=== PATIENT | female | born 1990 | race Caucasian/White ===

== ENCOUNTER 2025-03-29 22:34 | Emergency (ER) | payer SELFPAY ==
[2025-03-30 00:03] LABS: BASOPHILS ABSOLUTE AUTO 0.07 K/uL (0.00-0.20); BASOPHILS PERCENT AUTO 0.6 % (0.0-1.0); EOSINOPHILS ABSOLUTE AUTO 0.12 K/uL (0.00-0.45); EOSINOPHILS PERCENT AUTO 1.0 % (0.0-6.0); IMMATURE GRAN ABSOLUTE AUTO 0.07 K/uL (0.00-0.05); IMMATURE GRAN PERCENT AUTO 0.6 % (0.0-0.4); LYMPHOCYTES ABSOLUTE AUTO 1.66 K/uL (1.00-4.80); LYMPHOCYTES PERCENT AUTO 13.4 % (24.0-44.0); MEAN PLATELET VOLUME 10.4 fL (9.4-12.3); MONOCYTES ABSOLUTE AUTO 0.70 K/uL (0.00-0.80); MONOCYTES PERCENT AUTO 5.7 % (0.0-8.0); NEUTROPHILS ABSOLUTE AUTO 9.73 K/uL (1.80-7.70); NEUTROPHILS PERCENT AUTO 78.7 % (41.0-71.0); NRBC ABSOLUTE 0.00 K/uL (0.00-0.02); NRBC PERCENT 0.0 /100WBC (0.0-0.2); PLATELET COUNT,PLT 348 K/uL (150-400); RED BLOOD CELL COUNT 4.88 M/uL (4.10-5.30); WHITE BLOOD CELL COUNT,WBC 12.35 K/uL (3.9-11.3)
[2025-03-30 01:16] LABS: A/G RATIO 0.7 (0.9-1.6); ALANINE AMINOTRANSFERASE,ALT 19.0 IU/L (14-63); ASPARTATE AMNIOTRANSFERASE,AST 16.0 IU/L (15-37); BILIRUBIN TOTAL 0.5 mg/dL (0.2-1.0); BLOOD UREA NITROGEN,BUN 6.0 mg/dL (7.0-18.0); CARBON DIOXIDE,CO2 23.1 mmol/L (21.0-32.0); CHLORIDE,CL 100.0 mmol/L (98-107); CREATININE 0.7 mg/dL (0.6-1.0); EST CRCL DRUG DOSING (CG) 82.11 mL/min; GLUCOSE RANDOM 86.0 mg/dL (74-106); POTASSIUM,K 3.8 mmol/L (3.5-5.1); PROTEIN TOTAL,TP 7.7 g/dL (6.4-8.2); SODIUM,NA 136.0 mmol/L (136-145)
[2025-03-30 01:37] LABS: ESTIMATED GFR 117.0 mL/min (>60)
[2025-03-30 04:12] LABS: APPEARANCE,URINE CLOUDY; GLUCOSE,URINE NEGATIVE (NEGATIVE); OCCULT BLOOD,URINE LARGE (NEGATIVE)
[2025-03-30 05:07] LABS: EPITHELIAL CELLS,URINE FEW (NONE-FEW)
== END 2025-03-30 06:21 | disposition home or self-care (01) ==
LOC: MW.ED 22:34
DX: O42.912 Preterm premature rupture of membranes, unspecified as to length of time between rupture and onset of labor, second trimester (principal); Z3A.16 16 weeks gestation of pregnancy
CPT/HCPCS: 36415; 76815; 76817; 80053; 81001; 84702; 85025; 99284; A9270; 99283

== ENCOUNTER 2025-04-01 17:11 | Inpatient (IN) | payer SELFPAY ==
[2025-04-01] MEDS ORDERED: Sodium Chloride 0.9% 2.5 ML Syringe FLUSH PRN (17:45)
[2025-04-01] MEDS ORDERED: Sodium Chloride 0.9% 10 ML Syringe FLUSH PRN (17:45)
[2025-04-01] MEDS: Ampicillin/Sulbactam Na 3 GM in Sodium Chloride 0.9% 100 ML IV ONE (18:15)
[2025-04-01 18:16] LABS: BASOPHILS ABSOLUTE AUTO 0.04 K/uL (0.00-0.20); BASOPHILS PERCENT AUTO 0.2 % (0.0-1.0); EOSINOPHILS ABSOLUTE AUTO 0.04 K/uL (0.00-0.45); EOSINOPHILS PERCENT AUTO 0.2 % (0.0-6.0); IMMATURE GRAN ABSOLUTE AUTO 0.11 K/uL (0.00-0.05); IMMATURE GRAN PERCENT AUTO 0.6 % (0.0-0.4); LYMPHOCYTES ABSOLUTE AUTO 0.71 K/uL (1.00-4.80); LYMPHOCYTES PERCENT AUTO 3.6 % (24.0-44.0); MEAN PLATELET VOLUME 10.7 fL (9.4-12.3); MONOCYTES ABSOLUTE AUTO 0.37 K/uL (0.00-0.80); MONOCYTES PERCENT AUTO 1.9 % (0.0-8.0); NEUTROPHILS ABSOLUTE AUTO 18.26 K/uL (1.80-7.70); NEUTROPHILS PERCENT AUTO 93.5 % (41.0-71.0); NRBC ABSOLUTE 0.00 K/uL (0.00-0.02); NRBC PERCENT 0.0 /100WBC (0.0-0.2); PLATELET COUNT,PLT 252 K/uL (150-400); RED BLOOD CELL COUNT 4.45 M/uL (4.10-5.30); WHITE BLOOD CELL COUNT,WBC 19.53 K/uL (3.9-11.3)
[2025-04-01 18:42] LABS: A/G RATIO 0.6 (0.9-1.6); ALANINE AMINOTRANSFERASE,ALT 14.0 IU/L (14-63); ASPARTATE AMNIOTRANSFERASE,AST 17.0 IU/L (15-37); BILIRUBIN TOTAL 0.7 mg/dL (0.2-1.0); BLOOD UREA NITROGEN,BUN 6.0 mg/dL (7.0-18.0); CARBON DIOXIDE,CO2 22.5 mmol/L (21.0-32.0); CHLORIDE,CL 97.0 mmol/L (98-107); CREATININE 0.7 mg/dL (0.6-1.0); EST CRCL DRUG DOSING (CG) 82.11 mL/min; GLUCOSE RANDOM 103.0 mg/dL (74-106); POTASSIUM,K 3.2 mmol/L (3.5-5.1); PROTEIN TOTAL,TP 7.5 g/dL (6.4-8.2); SODIUM,NA 132.0 mmol/L (136-145)
[2025-04-01 18:43] LABS: ESTIMATED GFR 117.0 mL/min (>60)
[2025-04-01 18:47] LABS: LACTIC ACID 1.2 mmol/L (0.4-2.0)
[2025-04-01] MEDS: Ketorolac 30 MG/ML SDV IVPUSH ONE ×2 (19:05→21:52)
[2025-04-01] MEDS ORDERED: Butorphanol 1 MG/ML SDV IVPUSH PRN (21:06)
[2025-04-01] MEDS ORDERED: Nalbuphine 10 MG/1 ML Vial IVPUSH PRN (21:06)
[2025-04-01] MEDS ORDERED: fentaNYL 100 MCG/2 ML SDV IVPUSH PRN (21:06)
[2025-04-01] MEDS ORDERED: Ondansetron 4 MG/2 ML SDV IVPUSH PRN (21:34)
[2025-04-01 21:56] LABS: D-DIMER QUANTITATIVE 2.32 mg/L FEU (0.00-0.50); INR 0.99 (0.86-1.11)
[2025-04-01] MEDS: NS + KCl 20mEq/L 1,000 ML IV SCH (22:11)
[2025-04-01] MEDS: metroNIDAZOLE/Normal Saline 500 MG in Premix Bag 1 BAG IV SCH (22:19)
[2025-04-01] MEDS: Misoprostol 50 MCG (1/2 of 100 MCG) Tab VAG ONE (22:52)
[2025-04-02] MEDS: Lactated Ringers 1,000 ML IV ONE (00:04)
[2025-04-02 01:05] LABS: BASOPHILS ABSOLUTE AUTO 0.02 K/uL (0.00-0.20); BASOPHILS PERCENT AUTO 0.2 % (0.0-1.0); EOSINOPHILS ABSOLUTE AUTO 0.00 K/uL (0.00-0.45); EOSINOPHILS PERCENT AUTO 0.0 % (0.0-6.0); IMMATURE GRAN ABSOLUTE AUTO 0.05 K/uL (0.00-0.05); IMMATURE GRAN PERCENT AUTO 0.5 % (0.0-0.4); LYMPHOCYTES ABSOLUTE AUTO 0.49 K/uL (1.00-4.80); LYMPHOCYTES PERCENT AUTO 4.5 % (24.0-44.0); MEAN PLATELET VOLUME 10.5 fL (9.4-12.3); MONOCYTES ABSOLUTE AUTO 0.17 K/uL (0.00-0.80); MONOCYTES PERCENT AUTO 1.5 % (0.0-8.0); NEUTROPHILS ABSOLUTE AUTO 10.27 K/uL (1.80-7.70); NEUTROPHILS PERCENT AUTO 93.3 % (41.0-71.0); NRBC ABSOLUTE 0.00 K/uL (0.00-0.02); NRBC PERCENT 0.0 /100WBC (0.0-0.2); PLATELET COUNT,PLT 177 K/uL (150-400); RED BLOOD CELL COUNT 3.96 M/uL (4.10-5.30); WHITE BLOOD CELL COUNT,WBC 11.00 K/uL (3.9-11.3)
[2025-04-02 01:25] LABS: BLOOD UREA NITROGEN,BUN 5.0 mg/dL (7.0-18.0); CARBON DIOXIDE,CO2 18.5 mmol/L (21.0-32.0); CHLORIDE,CL 101.0 mmol/L (98-107); CREATININE 0.9 mg/dL (0.6-1.0); EST CRCL DRUG DOSING (CG) 63.86 mL/min; GLUCOSE RANDOM 88.0 mg/dL (74-106); POTASSIUM,K 2.6 mmol/L (3.5-5.1); SODIUM,NA 136.0 mmol/L (136-145)
[2025-04-02 01:26] LABS: ESTIMATED GFR 87.0 mL/min (>60)
[2025-04-02] MEDS: Magnesium Sulfat/D5W 1GM/100ML 1 GM in Premix Bag 1 BAG IV ONE (02:19)
[2025-04-02] MEDS ORDERED: Carboprost Tromethamine 250 MCG/1 mL Vial IM PRN (03:44)
[2025-04-02] MEDS ORDERED: Aluminum Hydroxide/Magnesium Hydroxide/Simethicone Susp 30 ML Cup PO PRN (03:47)
[2025-04-02] MEDS ORDERED: Lanolin 100% Cream 7 GM Tube TOP PRN (03:47)
[2025-04-02] MEDS ORDERED: Benzocaine/Menthol 20%-0.5% Spray 78 GM Cannister TOP PRN (03:47)
[2025-04-02] MEDS ORDERED: Witch Hazel Medicated Pads 40/Jar TOP PRN (03:47)
[2025-04-02 04:08] LABS: A/G RATIO 0.6 (0.9-1.6); ALANINE AMINOTRANSFERASE,ALT 13.0 IU/L (14-63); ASPARTATE AMNIOTRANSFERASE,AST 16.0 IU/L (15-37); BILIRUBIN TOTAL 0.9 mg/dL (0.2-1.0); BLOOD UREA NITROGEN,BUN 6.0 mg/dL (7.0-18.0); CARBON DIOXIDE,CO2 17.7 mmol/L (21.0-32.0); CHLORIDE,CL 101.0 mmol/L (98-107); CREATININE 0.9 mg/dL (0.6-1.0); EST CRCL DRUG DOSING (CG) 63.86 mL/min; GLUCOSE RANDOM 102.0 mg/dL (74-106); POTASSIUM,K 3.2 mmol/L (3.5-5.1); PROTEIN TOTAL,TP 5.4 g/dL (6.4-8.2); SODIUM,NA 133.0 mmol/L (136-145)
[2025-04-02 04:10] LABS: ESTIMATED GFR 87.0 mL/min (>60)
[2025-04-02 04:15] LABS: BASOPHILS ABSOLUTE AUTO 0.03 K/uL (0.00-0.20); BASOPHILS PERCENT AUTO 0.2 % (0.0-1.0); EOSINOPHILS ABSOLUTE AUTO 0.01 K/uL (0.00-0.45); EOSINOPHILS PERCENT AUTO 0.1 % (0.0-6.0); IMMATURE GRAN ABSOLUTE AUTO 0.15 K/uL (0.00-0.05); IMMATURE GRAN PERCENT AUTO 0.8 % (0.0-0.4); LYMPHOCYTES ABSOLUTE AUTO 0.38 K/uL (1.00-4.80); LYMPHOCYTES PERCENT AUTO 1.9 % (24.0-44.0); MEAN PLATELET VOLUME 10.3 fL (9.4-12.3); MONOCYTES ABSOLUTE AUTO 0.76 K/uL (0.00-0.80); MONOCYTES PERCENT AUTO 3.8 % (0.0-8.0); NEUTROPHILS ABSOLUTE AUTO 18.45 K/uL (1.80-7.70); NEUTROPHILS PERCENT AUTO 93.2 % (41.0-71.0); NRBC ABSOLUTE 0.00 K/uL (0.00-0.02); NRBC PERCENT 0.0 /100WBC (0.0-0.2); PLATELET COUNT,PLT 150 K/uL (150-400); RED BLOOD CELL COUNT 3.68 M/uL (4.10-5.30); WHITE BLOOD CELL COUNT,WBC 19.78 K/uL (3.9-11.3)
[2025-04-02 04:26] LABS: INR 1.2 (0.86-1.11); PTT,PARTIAL THROMBOPLSTIN TIME 36.1 SEC (23.9-30.7)
[2025-04-02] MEDS ORDERED: propofoL 500 MG/50 ML 50 ML ONE (05:08)
[2025-04-02] MEDS ORDERED: Oxytocin 10 Units/1 ML SDV ONE (05:19)
[2025-04-02] MEDS ORDERED: Ondansetron 4 MG/2 ML SDV ONE (05:58)
[2025-04-02 06:46] LABS: MEAN PLATELET VOLUME 10.6 fL (9.4-12.3); NRBC ABSOLUTE 0.00 K/uL (0.00-0.02); NRBC PERCENT 0.0 /100WBC (0.0-0.2); PLATELET COUNT,PLT 146 K/uL (150-400); RED BLOOD CELL COUNT 4.46 M/uL (4.10-5.30); WHITE BLOOD CELL COUNT,WBC 27.21 K/uL (3.9-11.3)
[2025-04-02 06:57] LABS: A/G RATIO 0.6 (0.9-1.6); ALANINE AMINOTRANSFERASE,ALT 12.0 IU/L (14-63); ASPARTATE AMNIOTRANSFERASE,AST 20.0 IU/L (15-37); BILIRUBIN TOTAL 1.0 mg/dL (0.2-1.0); BLOOD UREA NITROGEN,BUN 6.0 mg/dL (7.0-18.0); CARBON DIOXIDE,CO2 15.8 mmol/L (21.0-32.0); CHLORIDE,CL 103.0 mmol/L (98-107); CREATININE 0.8 mg/dL (0.6-1.0); EST CRCL DRUG DOSING (CG) 71.84 mL/min; ESTIMATED GFR 100.0 mL/min (>60); GLUCOSE RANDOM 93.0 mg/dL (74-106); POTASSIUM,K 3.4 mmol/L (3.5-5.1); PROTEIN TOTAL,TP 5.8 g/dL (6.4-8.2); SODIUM,NA 134.0 mmol/L (136-145)
[2025-04-02 07:03] LABS: BAND ABSOLUTE MAN 4.90; BAND PERCENT MAN 18 %; LYMPHOCYTES ABSOLUTE MAN 0.54 K/uL (1.00-4.80); LYMPHOCYTES PERCENT MAN 2 % (24-44); MONOCYTES ABSOLUTE MAN 1.63 K/uL (0.00-0.80); MONOCYTES PERCENT MAN 6 % (0-8); SEG NEUTROPHILS ABSOLUTE MAN 20.14 K/uL (1.80-7.70); SEG NEUTROPHILS PERCENT MAN 74 % (41-71)
[2025-04-02] MEDS ORDERED: Naloxone 0.4 MG/ML SDV IVPUSH PRN (08:19)
[2025-04-02] MEDS: Oxytocin/0.9 % Sodium Chloride 30 UNIT/500 ML BAG ONE (08:33)
[2025-04-02 10:15] LABS: MEAN PLATELET VOLUME 10.6 fL (9.4-12.3); NRBC ABSOLUTE 0.00 K/uL (0.00-0.02); NRBC PERCENT 0.0 /100WBC (0.0-0.2); PLATELET COUNT,PLT 147 K/uL (150-400); RED BLOOD CELL COUNT 4.15 M/uL (4.10-5.30); WHITE BLOOD CELL COUNT,WBC 25.82 K/uL (3.9-11.3)
[2025-04-02 10:39] LABS: A/G RATIO 0.5 (0.9-1.6); ALANINE AMINOTRANSFERASE,ALT 14.0 IU/L (14-63); ASPARTATE AMNIOTRANSFERASE,AST 21.0 IU/L (15-37); BILIRUBIN TOTAL 1.0 mg/dL (0.2-1.0); BLOOD UREA NITROGEN,BUN 6.0 mg/dL (7.0-18.0); CARBON DIOXIDE,CO2 16.6 mmol/L (21.0-32.0); CHLORIDE,CL 105.0 mmol/L (98-107); CREATININE 0.9 mg/dL (0.6-1.0); EST CRCL DRUG DOSING (CG) 63.86 mL/min; GLUCOSE RANDOM 96.0 mg/dL (74-106); POTASSIUM,K 3.6 mmol/L (3.5-5.1); PROTEIN TOTAL,TP 5.7 g/dL (6.4-8.2); SODIUM,NA 135.0 mmol/L (136-145)
[2025-04-02 10:41] LABS: ESTIMATED GFR 87.0 mL/min (>60)
[2025-04-02 11:24] LABS: BAND ABSOLUTE MAN 0.00; LYMPHOCYTES ABSOLUTE MAN 0.52 K/uL (1.00-4.80); LYMPHOCYTES PERCENT MAN 2 % (24-44); MONOCYTES ABSOLUTE MAN 1.03 K/uL (0.00-0.80); MONOCYTES PERCENT MAN 4 % (0-8); SEG NEUTROPHILS ABSOLUTE MAN 24.27 K/uL (1.80-7.70); SEG NEUTROPHILS PERCENT MAN 94 % (41-71)
[2025-04-02 18:22] LABS: MEAN PLATELET VOLUME 10.7 fL (9.4-12.3); NRBC PERCENT 0.0 /100WBC (0.0-0.2); PLATELET COUNT,PLT 150 K/uL (150-400); RED BLOOD CELL COUNT 3.80 M/uL (4.10-5.30); WHITE BLOOD CELL COUNT,WBC 20.40 K/uL (3.9-11.3)
[2025-04-02 18:41] LABS: A/G RATIO 0.6 (0.9-1.6); ALANINE AMINOTRANSFERASE,ALT 8.0 IU/L (14-63); ASPARTATE AMNIOTRANSFERASE,AST 12.0 IU/L (15-37); BILIRUBIN TOTAL 0.6 mg/dL (0.2-1.0); BLOOD UREA NITROGEN,BUN 5.0 mg/dL (7.0-18.0); CARBON DIOXIDE,CO2 17.2 mmol/L (21.0-32.0); CHLORIDE,CL 108.0 mmol/L (98-107); CREATININE 0.7 mg/dL (0.6-1.0); EST CRCL DRUG DOSING (CG) 82.11 mL/min; GLUCOSE RANDOM 95.0 mg/dL (74-106); POTASSIUM,K 3.4 mmol/L (3.5-5.1); PROTEIN TOTAL,TP 5.4 g/dL (6.4-8.2); SODIUM,NA 138.0 mmol/L (136-145)
[2025-04-02 18:42] LABS: ESTIMATED GFR 117.0 mL/min (>60)
[2025-04-02 18:46] LABS: LACTIC ACID 1.1 mmol/L (0.4-2.0)
[2025-04-02 19:11] LABS: LYMPHOCYTES ABSOLUTE MAN 0.82 K/uL (1.00-4.80); LYMPHOCYTES PERCENT MAN 4 % (24-44); MONOCYTES ABSOLUTE MAN 0.61 K/uL (0.00-0.80); MONOCYTES PERCENT MAN 3 % (0-8); SEG NEUTROPHILS ABSOLUTE MAN 18.97 K/uL (1.80-7.70); SEG NEUTROPHILS PERCENT MAN 93 % (41-71)
[2025-04-02] MEDS: Ketorolac 30 MG/ML SDV IVPUSH SCH (21:46)
[2025-04-03 05:45] LABS: BASOPHILS ABSOLUTE AUTO 0.08 K/uL (0.00-0.20); BASOPHILS PERCENT AUTO 0.5 % (0.0-1.0); EOSINOPHILS ABSOLUTE AUTO 0.27 K/uL (0.00-0.45); EOSINOPHILS PERCENT AUTO 1.5 % (0.0-6.0); IMMATURE GRAN ABSOLUTE AUTO 0.14 K/uL (0.00-0.05); IMMATURE GRAN PERCENT AUTO 0.8 % (0.0-0.4); LYMPHOCYTES ABSOLUTE AUTO 2.02 K/uL (1.00-4.80); LYMPHOCYTES PERCENT AUTO 11.5 % (24.0-44.0); MEAN PLATELET VOLUME 11.1 fL (9.4-12.3); MONOCYTES ABSOLUTE AUTO 1.33 K/uL (0.00-0.80); MONOCYTES PERCENT AUTO 7.6 % (0.0-8.0); NEUTROPHILS ABSOLUTE AUTO 13.69 K/uL (1.80-7.70); NEUTROPHILS PERCENT AUTO 78.1 % (41.0-71.0); NRBC ABSOLUTE 0.00 K/uL (0.00-0.02); NRBC PERCENT 0.0 /100WBC (0.0-0.2); PLATELET COUNT,PLT 140 K/uL (150-400); RED BLOOD CELL COUNT 3.50 M/uL (4.10-5.30); WHITE BLOOD CELL COUNT,WBC 17.53 K/uL (3.9-11.3)
[2025-04-03 06:18] LABS: BLOOD UREA NITROGEN,BUN 5.0 mg/dL (7.0-18.0); CARBON DIOXIDE,CO2 19.0 mmol/L (21.0-32.0); CHLORIDE,CL 111.0 mmol/L (98-107); CREATININE 0.7 mg/dL (0.6-1.0); EST CRCL DRUG DOSING (CG) 82.11 mL/min; GLUCOSE RANDOM 115.0 mg/dL (74-106); PHOSPHORUS 2.2 mg/dL (2.6-4.7); POTASSIUM,K 3.0 mmol/L (3.5-5.1); SODIUM,NA 141.0 mmol/L (136-145)
[2025-04-03 06:33] LABS: ESTIMATED GFR 117.0 mL/min (>60)
[2025-04-03] MEDS: Phosphorus #1 250 MG Tab PO SCH ×2 (09:26→15:50)
[2025-04-03] MEDS: Potassium Chloride 20 MEQ Tab.ER PO ONE (09:26)
[2025-04-03] MEDS: Sodium Ferric Gluconate Cmplex 125 MG in Sodium Chloride 0.9% 100 ML IV SCH (11:15)
[2025-04-04] MEDS ORDERED: Calcium Gluconate 10% 1 GM/10 ML SDV IV PRN (04:03)
[2025-04-04 06:00] LABS: BASOPHILS ABSOLUTE AUTO 0.06 K/uL (0.00-0.20); BASOPHILS PERCENT AUTO 0.7 % (0.0-1.0); EOSINOPHILS ABSOLUTE AUTO 0.22 K/uL (0.00-0.45); EOSINOPHILS PERCENT AUTO 2.5 % (0.0-6.0); IMMATURE GRAN ABSOLUTE AUTO 0.04 K/uL (0.00-0.05); IMMATURE GRAN PERCENT AUTO 0.4 % (0.0-0.4); LYMPHOCYTES ABSOLUTE AUTO 2.30 K/uL (1.00-4.80); LYMPHOCYTES PERCENT AUTO 25.8 % (24.0-44.0); MEAN PLATELET VOLUME 11.7 fL (9.4-12.3); MONOCYTES ABSOLUTE AUTO 0.57 K/uL (0.00-0.80); MONOCYTES PERCENT AUTO 6.4 % (0.0-8.0); NEUTROPHILS ABSOLUTE AUTO 5.74 K/uL (1.80-7.70); NEUTROPHILS PERCENT AUTO 64.2 % (41.0-71.0); NRBC ABSOLUTE 0.00 K/uL (0.00-0.02); NRBC PERCENT 0.0 /100WBC (0.0-0.2); PLATELET COUNT,PLT 166 K/uL (150-400); RED BLOOD CELL COUNT 3.42 M/uL (4.10-5.30); WHITE BLOOD CELL COUNT,WBC 8.93 K/uL (3.9-11.3)
[2025-04-04 06:28] LABS: A/G RATIO 0.5 (0.9-1.6); ALANINE AMINOTRANSFERASE,ALT 8.0 IU/L (14-63); ASPARTATE AMNIOTRANSFERASE,AST 11.0 IU/L (15-37); BILIRUBIN TOTAL 0.2 mg/dL (0.2-1.0); BLOOD UREA NITROGEN,BUN 4.0 mg/dL (7.0-18.0); CARBON DIOXIDE,CO2 20.4 mmol/L (21.0-32.0); CHLORIDE,CL 111.0 mmol/L (98-107); CREATININE 0.6 mg/dL (0.6-1.0); EST CRCL DRUG DOSING (CG) 95.79 mL/min; GLUCOSE RANDOM 88.0 mg/dL (74-106); POTASSIUM,K 3.6 mmol/L (3.5-5.1); PROTEIN TOTAL,TP 5.0 g/dL (6.4-8.2); SODIUM,NA 141.0 mmol/L (136-145)
[2025-04-04 06:30] LABS: ESTIMATED GFR 121.0 mL/min (>60)
[2025-04-04] MEDS ORDERED: Sodium Ferric Gluconate Cmplex 125 MG in Sodium Chloride 0.9% 100 ML IV SCH (10:15)
== END 2025-04-04 15:05 | disposition home or self-care (01) | DRG 817 ==
LOC: MW.ED 17:11 → MW.MS 18:56 → MW.OB 18:57 → MW.ICU 04-02 00:08 → OBSVTOIN 04-02 06:00 → MW.OB 04-03 12:48
PROVIDERS: ADMIT Obstetrics & Gynecology; ATTEND Obstetrics & Gynecology
PROC: 30233N1 Transfusion of Nonautologous Red Blood Cells into Peripheral Vein, Percutaneous Approach (ICD-10-PCS; 2025-04-02)
PROC: 10D17ZZ Extraction of Products of Conception, Retained, Via Natural or Artificial Opening (ICD-10-PCS; principal; 2025-04-02 05:00)
DX: O41.1220 Chorioamnionitis, second trimester, not applicable or unspecified (principal); O85 Puerperal sepsis; R65.21 Severe sepsis with septic shock; O03.37 Sepsis following incomplete spontaneous abortion; E87.1 Hypo-osmolality and hyponatremia; O72.1 Other immediate postpartum hemorrhage; E86.0 Dehydration; O73.1 Retained portions of placenta and membranes, without hemorrhage; E87.6 Hypokalemia; O99.212 Obesity complicating pregnancy, second trimester; O42.912 Preterm premature rupture of membranes, unspecified as to length of time between rupture and onset of labor, second trimester; O99.012 Anemia complicating pregnancy, second trimester; O32.1XX0 Maternal care for breech presentation, not applicable or unspecified; B96.89 Other specified bacterial agents as the cause of diseases classified elsewhere; O99.344 Other mental disorders complicating childbirth; F32.A Depression, unspecified; Z90.49 Acquired absence of other specified parts of digestive tract; Z98.891 History of uterine scar from previous surgery; Z98.890 Other specified postprocedural states; Z79.899 Other long term (current) drug therapy; Z3A.17 17 weeks gestation of pregnancy
CPT/HCPCS: 36415; 36430; 51702; 71046; 71046-26; 76805; 76805-26; 80048; 80053; 83605; 83735; 84100; 85007; 85025; 85027; 85379; 85384; 85610; 85730; 86850; 86900; 86901; 86920; 87040; 87077; 87154; 87186; 87641; 96361; 96365; 96375; 99222; 99232; 99238; 99284; 99285-25; A9270-GY; C1729; J0290; J0295; J1580; J1836; J1885; J2210; J2270; J2371; J2405; J2590; J2704; J2916; J3371; J3475; J3480; J7030; J7050; J7120; P9016